=== PATIENT | female | born 1940 | race Caucasian/White ===

== ENCOUNTER 2021-02-27 07:40 | Outpatient (CLI) | payer MEDICARE, BC ==
[2021-02-27] MEDS ORDERED: ADENOSINE 60 MG/20 ML VIAL ONE (10:09)
== END 2021-02-27 07:41 | disposition home or self-care (01) ==
LOC: NM 07:40
PROVIDERS: ATTEND Internal Medicine
DX: R01.1 Cardiac murmur, unspecified (principal); I21.9 Acute myocardial infarction, unspecified; R07.89 Other chest pain
CPT/HCPCS: 78452; 93017; A9500; J0153